=== PATIENT | male | born 1960 | race Caucasian/White ===

== ENCOUNTER 2025-03-31 19:07 | Inpatient (IN) | payer OTHER, SELFPAY ==
[2025-03-31] VITALS (7 sets, daily range): BP systolic 120–142; BP diastolic 45–68; PULSE 97–104; RESP 12–20; TEMP 36.8–38.8; O2SAT 95–99; BMI 25.5
--- NOTE | ~2025-03-31 | CT_ITS ---
CLINICAL HISTORY: crohns flare, pain, diarrhea CT abdomen and pelvis with contrast Comparison: None provided Findings: Lung bases clear. No acute bony abnormalities. Liver and spleen within normal limits. Pancreas and adrenal glands unremarkable. Cholecystectomy. No significant focal renal abnormalities. No renal stones or hydronephrosis. Abdominal aorta is normal in caliber. No free fluid or adenopathy in the pelvis. No diverticulitis. Appendix not identified. Diffuse colonic wall edema with adjacent stranding. Hydronephrosis consistent with nonspecific acute colitis. No significant bowel distention is identified. Terminal ileum is normal. Impression: Nonspecific acute colitis pattern This document has been electronically signed by: Matt Andersen MD on 03/31/2025 22:59:38
--- NOTE | 2025-03-31 19:10 | ED.GENADULT ---
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 Patient states he has been having lower abdominal discomfort over the past 2 weeks. Over the past 2 days it has increased in severity. Associated numerous episodes of diarrhea. Associated generalized malaise, fatigue, subjective fevers. Denies nausea vomiting or bloody stool. Denies recent travel out of the country, use of antibiotics or recent hospitalization. Related Data Allergies Allergy/AdvReac Type Severity Reaction Status Date / Time No Known Allergies Allergy Verified 03/31/25 19:16 Review of Systems Review of Systems: Yes all other systems are reviewed and are negative Constitutional: Constitutional: Reports fatigue, Reports fever(s) and Reports malaise Cardiovascular: Cardiovascular: Denies chest pain and Denies dyspnea Respiratory: Respiratory: Denies dyspnea Gastrointestinal: Gastrointestinal: Reports abdominal pain, Denies hematochezia, Reports diarrhea, Denies nausea and Denies vomiting Endocrine: Endocrine: Reports fatigue PMFSH Past Medical History Attestation statement: The following information was validated with the patient. Social History Social History Smoked in Last 30 Days: No Use of substances other than those prescribed or required for medical reasons: No Advance Directives: No Advance Directives Information Provided: No Physical Exam ED Vital Signs: Vital Signs - 24 hr 03/31/25 19:11 03/31/25 20:31 03/31/25 21:23 Temperature 100.0 F 98.3 F Pulse Rate 104 H 101 H Respiratory Rate 20 16 20 Blood Pressure 142/63 H 131/45 L Pulse Oximetry 96 95 Oxygen Delivery Method Room Air Room Air 03/31/25 21:27 03/31/25 22:20 03/31/25 22:23 Temperature 101.9 F H 98.3 F Pulse Rate 99 99 Respiratory Rate 12 15 17 Blood Pressure 120/63 130/62 131/68 Pulse Oximetry 95 97 99 Oxygen Delivery Method Room Air Room Air 03/31/25 22:30 03/31/25 22:30 04/01/25 00:21 Temperature 100.5 F H 98.0 F Pulse Rate 97 89 Respiratory Rate 18 12 Blood Pressure 124/64 109/60 Pulse Oximetry 95 Oxygen Delivery Method Room Air BMI result Body Mass Index 25.5 Const Other: Alert, ill-appearing Orientation/consciousness: patient oriented x3 Resp Effort & Inspection: normal respiratory effort Cardio Other: Normal peripheral perfusion GI Other: Abdomen is soft, nondistended, mild to moderate tenderness across entire lower abdomen, left greater than right, with mild involuntary guarding, guaiac negative Skin Other: Warm dry no rash Neuro General: patient oriented x3, gait normal, no focal motor deficits and CN's II-XI intact bilaterally Psych Other: Cooperative Course Course Course Narrative: This is a Rapid Medical Examination (RME) performed by Neli Tapia PA-C in triage. Full HPI, ROS, assessment and treatment plan per primary provider in the Main ED. Hx: 64 yo M here w/ concerns of Crohns flare. has not followed up w/ GI in some time, has not been on Crohns meds for approx 8 yrs. reports worsening diffuse abd pain x 2 weeks, more severe 2 days. assoc nonbloody diarrhea. no N/V. Plan: labs Medications Administered Discontinued Medications Generic Name Dose Route Start Last Admin Trade Name Freq PRN Reason Stop Dose Admin Ceftriaxone Sodium 2 gm 03/31/25 21:19 03/31/25 21:22 Ceftriaxone Sodium 2 Gm Vial IVPUSH 03/31/25 21:20 2 gm ONCE ONE Administration Sodium Chloride 1,000 mls @ 999 mls/hr 03/31/25 21:15 03/31/25 22:10 Ns IV 03/31/25 22:15 Infused .Q1H1M COLT Infusion Acetaminophen 1,000 mg in 100 mls @ 400 mls/hr 03/31/25 21:32 03/31/25 22:26 Ofirmev IV 03/31/25 21:46 Infused ONCE ONE Infusion Metronidazole 500 mg in 100 mls @ 100 mls/hr 03/31/25 23:18 04/01/25 00:42 Flagyl IV 04/01/25 00:17 Infused ONCE ONE Infusion Iohexol 85 ml 03/31/25 21:59 03/31/25 22:02 Iohexol 350 Mg/Ml 100 Ml Infus..Btl IV 03/31/25 22:00 85 ml ONCE ONE Administration Morphine Sulfate 4 mg 03/31/25 21:04 03/31/25 21:23 Morphine Sulfate 4 Mg/Ml Cartridge IVPUSH 03/31/25 21:05 4 mg ONCE ONE Administration Protocol Medical Decision Making Medical Decision Making [facility] Narrative: 64-year-old male with a history of Crohn's disease, 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 Patient states he has been having lower abdominal discomfort over the past 2 weeks. Over the past 2 days it has increased in severity. Associated numerous episodes of diarrhea. Associated generalized malaise, fatigue, subjective fevers. Denies nausea vomiting or bloody stool. Denies recent travel out of the country, use of antibiotics or recent hospitalization. Problem: Crohn's disease History: Per patient I have considered the following differential diagnoses: Crohn's flare, diverticulitis, traveler's diarrhea, C diff, sepsis Plan: The patient is meeting sepsis criteria, he is febrile, he has a significant leukocytosis he is mildly tachycardic. Screening labs completed, adding on blood cultures and lactic, inflammatory markers. Giving weight based IV fluid, Tylenol and starting empiric ceftriaxone. I will be scanning his abdomen. Given the absence of bloody stool, likely not a Crohn's flare. He has no risk factors for traveler's diarrhea or C diff. This could be diverticulitis. I have independently reviewed the following tests: Labs: Leukocytosis of 24.3 with left shift, not anemic, ESR 13, no electrolyte abnormality, lactic 0.7, CRP 9.58 CT abdomen and pelvis:Findings: Lung bases clear. No acute bony abnormalities. Liver and spleen within normal limits. Pancreas and adrenal glands unremarkable. Cholecystectomy. No significant focal renal abnormalities. No renal stones or hydronephrosis. Abdominal aorta is normal in caliber. No free fluid or adenopathy in the pelvis. No diverticulitis. Appendix not identified. Diffuse colonic wall edema with adjacent stranding. Hydronephrosis consistent with nonspecific acute colitis. No significant bowel distention is identified. Terminal ileum is normal. 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 03/31/25 19:25 03/31/25 19:25 Labs: Lab Results 03/31/25 03/31/25 03/31/25 Range/Units 19:25 21:15 21:28 WBC 24.3 H (4.8-10.8) X10*3/uL RBC 5.11 (4.60-5.80) X10*6/uL Hgb 14.1 (14.0-18.0) g/dl Hct 40.8 L (42.0-52.0) % MCV 79.8 L (80.0-98.0) fL MCH 27.6 (27.0-33.0) pg MCHC 34.6 (31.0-36.0) g/dl RDW 13.0 (11.0-16.0) % Plt Count 386 (160-400) X10*3/uL MPV 8.5 L (9.4-12.4) fL Immature Gran % (Auto) 0.7 H (0.0-0.4) % Neut % (Auto) 82.9 H (45-73) % Lymph % (Auto) 5.4 L (20-40) % [place] % (Auto) 8.5 (2-11) % Eos % (Auto) 2.0 (0-4) % Baso % (Auto) 0.5 (0-2) % Lymph # (Auto) 1.3 (1.2-4.9) X10*3/uL [place] # (Auto) 2.1 H (0.1-1.2) X10*3/uL Eos # (Auto) 0.5 H (0.0-0.4) X10*3/uL Baso # (Auto) 0.1 (0.0-0.2) X10*3/uL Abs Immat Gran (auto) 0.17 H (0.00-0.03) X10*3/uL Absolute Neuts (auto) 20.1 H (2.0-8.3) x10*3/uL Absolute Nucleated RBC 0.000 (0.0-0.012) X10*3/uL Nucleated RBC % (auto) 0.0 (0.0-0.2) /100WBC Smear Tech's Comments VERIFIED ESR 13 (0-15) MM/HR Sodium 138 (135-145) mmol/L Potassium 3.9 (3.3-5.1) mmol/L Chloride 104 (96-108) mmol/L Carbon Dioxide 23 (22-29) mmol/L Anion Gap 15 (12-20) BUN 15 (9-16) mg/dL Creatinine 1.14 (0.5-1.4) mg/dL Estim Creat Clear Calc 75.9 Estimated GFR > 60 Random Glucose 152 H (60-115) mg/dL Lactic Acid 0.7 (0.5-2.0) mmol/L Calcium 9.1 (8.4-10.2) mg/dL Magnesium 1.9 (1.6-2.6) mg/dL Total Bilirubin 0.3 (0.0-1.0) mg/dL AST 18 (5-37) U/L ALT 11 (0-40) U/L Alkaline Phosphatase 99 (39-117) U/L C-Reactive Protein 9.58 H (< or = 0.50) mg/dL Total Protein 7.0 (6.5-8.0) g/dL Albumin 4.1 (3.5-5.0) g/dL Lipase 27 (8-78) U/L Stool Occult Blood NEGATIVE (NEGATIVE) Radiology Impression Discussion of test interpretation with radiology: I have reviewed the radiologist's reading. Critical Care Time Critical Care Time Critical Care Time: Yes Total Critical Care Time: 35 Attestation: I Flalon Romo PA-C have personally performed 35 minutes of critical care time not including lines and procedures; sepsis, need for IV antibiotic therapy, Discharge Plan Discharge Clinical Impression: Sepsis, Colitis Patient Disposition: Admitted As Inpatient Print Language: Solomon Islander
[2025-03-31 19:30] LABS: Hematocrit 40.8 % (42.0-52.0); Hemoglobin 14.1 g/dl (14.0-18.0); Imm Gran Abs Auto 0.17 X10*3/uL (0.00-0.03); Imm Gran Pct Auto 0.7 % (0.0-0.4); Lymphocytes Absolute Auto 1.3 X10*3/uL (1.2-4.9); Mean Corpuscular HGB Conc 34.6 g/dl (31.0-36.0); Mean Corpuscular Hemoglobin 27.6 pg (27.0-33.0); Mean Corpuscular Volume 79.8 fL (80.0-98.0); NRBC Abs Auto 0.000 X10*3/uL (0.0-0.012); NRBC Pct Auto 0.0 /100WBC (0.0-0.2); Platelet Count 386 X10*3/uL (160-400); Red Blood Count 5.11 X10*6/uL (4.60-5.80); SCAN SMEAR FLAG 1; White Blood Count 24.3 X10*3/uL (4.8-10.8)
[2025-03-31 19:31] LABS: MANUAL DIFF FLAG SCAN
--- NOTE | 2025-03-31 19:41 | PC.NURSE ---
pt a&ox4, respirations even and unlabored. pt reports onset of increased abdominal pain, nausea but no vomiting and multiple loose stools. pt denies any blood in bowel movements. reports hx of chrones but reports he has no had a flare up recently. pt nsr on tele 75-78 bpm. 18g placed in left ac
[2025-03-31 19:45] LABS: Alanine Aminotransferase 11 U/L (0-40); Albumin Level 4.1 g/dL (3.5-5.0); Alkaline Phosphatase 99 U/L (39-117); Anion Gap 15 (12-20); Aspartate Amino Transferase 18 U/L (5-37); Blood Urea Nitrogen 15 mg/dL (9-16); Calcium 9.1 mg/dL (8.4-10.2); Carbon Dioxide 23 mmol/L (22-29); Chloride 104 mmol/L (96-108); Creatinine Clr Calc Pharmacy 75.9; Estimated Glomerular Filt Rate > 60; Lipase 27 U/L (8-78); Magnesium 1.9 mg/dL (1.6-2.6); Potassium 3.9 mmol/L (3.3-5.1); Sodium 138 mmol/L (135-145); Total Protein 7.0 g/dL (6.5-8.0)
--- OUTSIDE RECORDS SUMMARY | 2025-03-31 20:30 | XMS_ITS | Clinical Summary ---
Author Organization [facility] Address [address] [place] [phone] Phone Care Team Providers Care Simulation Educator Name Role Phone Silver Norman MD Primary Care Provider [phone] Allergies No known active allergies Medications hyoscyamine (LEVBID) 0.375 mg 12 hr tablet Take 0.375 mg by mouth every 12 (twelve) hours as needed for cramping (specific location in comments). Active FREESTYLE LITE Strp stripsIndications :Type 2 diabetes mellitus with peripheral neuropathy USE TO TEST GLUCOSE 1X DAILY 100 strip 3 4 Active atorvastatin (LIPITOR) 20 MG tablet Take 20 mg by mouth daily. 5 Active empagliflozin (JARDIANCE) 25 mg tabletIndications :Type 2 diabetes mellitus with peripheral neuropathy Take 1 tablet (25 mg total) by mouth daily. 5 Active blood-glucose sensor (DEXCOM G7 SENSOR) DeviIndications:T ype 2 diabetes mellitus with peripheral neuropathy Change every 10 days 9 each 3 5 Active semaglutide (OZEMPIC) 0.25 mg or 0.5 mg (2 mg/3 mL) subcutaneous injection penIndications:Ty pe 2 diabetes mellitus with peripheral neuropathy Inject 0.5 mg under the skin every 7 days. 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 Rx sent. Hypertension 01/06/2024 Assessment & Plan (11/30/2024 11:02 AM EDT): BP a little high today. Tends to go up w/ activity. Hasn't been taking metoprolol (no side effects, just not good @ taking meds). Advised to restart. Crohn disease 01/06/2024 Type 2 diabetes mellitus with peripheral neuropa thy 01/06/2024 Assessment & Plan (11/30/2024 11:04 AM EDT): Control has improved significantly. No frequent or severe hypoglycemia. Has some visual symptoms w/ low-tre readings. Discussed optimizing medications with favorable impacts on weight in favor of other meds (insulin) that tend to cause weight gain. Will shift ozempic to 0.5 mg weekly & restart jardiance. Will lower insulin to avoid lows. Advised to shift insulin to higher up in thigh. Will do labs. To call if hasn't heard from us within 1-2 weeks. Continue to work on eating healthy & keeping active. To call or send in BG with problems with glycemic control. To get into see new ophtho. Discussed rx neuropathy. Does not wish to pursue rx at present. Assessment & Plan (05/04/2024 4:47 PM EDT): Control has improved significantly. No frequent or severe hypoglycemia. Has some visual symptoms w/ low-tre readings. That has improved w/ titrating down insulin dosing. Will do labs. To call if hasn't heard from us within 1-2 weeks. Continue to work on eating healthy & keeping active. To call or send in BG with problems with glycemic control. Up to date with opho. Umalb/creat ratio up to date, normal. Discussed rx neuropathy. He has been inconsistent taking lyrica. BP under reasonable control. Assessment & Plan (03/19/2024 3:25 PM EDT): Control is improving based upon the patient's dexcom G7 download. No frequent or severe hypoglycemia. His glucose levels have been doing well with the ozempic, will try increasing the dosing to see if can further improve his control. Continue to work on eating healthy and being active. To call or message with any issues managing his glucose levels. Up to date with opho Assessment & Plan (01/06/2024 1:05 PM EDT): Control has been poor/has deteriorated. Having worsening neuropathy symptoms, weight loss & weakness, likely related to poor control. No frequent or severe hypoglycemia. Will do labs. To call if hasn't heard from us within 1-2 weeks. Discussed options to improve control. Advised he begin basal insulin. To start @ 10 units nightly. May titrate up 2 units every 3-4 days if sugars remain high & no hypoglycemia. Will shift from trulicity to ozempic due to supply chain issues, to start 0.25 mg & increase to 0.50 mg as tolerated after 1 month. Will send rx for sandra 3 to better evaluate control/guide rx adjustment. Continue to work on eating healthy & keeping active. To call or send in BG with problems with glycemic control. Up to date with opho. Mild tinea pedis on exam, to rx with OTC anti-fungal. BP under reasonable control. Weight loss 01/06/2024 care home current use of oral hypoglycemic drug Long-term current use of inj ectable noninsulin antidiabetic medication care home current use of insulin Encounters Date Type Department Care Team Description 02/25/2025 Refill [facility] [address] [place] [address] Dina Ellington MA Medication Refill (BD pen needles) 12/31/2024 Orders Only [facility] [place] [address] [place] [phone] Rossana Stringer MD Type 2 diabetes mellitus with peripheral neuropathy (Primary Dx); care home current use of insulin 12/31/2024 Telephone [facility] [address] [place] [address] Cecilia Baldwin MA from Last 3 Months Family History Medical History Relation Comments Kidney failure Father Diabetes Mother Relation Status Comments Father Mother Social History Tobacco Use Types Packs/Day Years Used Date Smoking Tobacco: Never Smokeless Tobacco: Never Alcohol Use Standard Drinks/Week Comments Never 0 (1 standard drink = 0.6 oz pur e alcohol) Education Answer Date Recorded Are you interested in more education? Not on hernandez e 05/15/2023 Are you concerned about learning? Not on file 05/15/2023 No 05/15/2023 No 05/15/2023 Digital Access Answer Date Recorded No 05/15/2023 No 05/15/2023 Reliable internet access at home? Not on file 05/15/2023 Device with a working camera? Not on file Intimate Partner Violence Answer Date R ecorded Are you denied basic needs s uch as food, clothing, or medical care? No 05/15/2023 In the past 12 months have y ou been in a relationship with a person who hurts, threatens, or tries to control you? No 05/15/2023 Are you denied basic needs s uch as food, clothing, or medical care? No 05/15/2023 In the past 12 months have y ou been in a relationship with a person who hurts, threatens, or tries to control you? No 05/15/2023 Sex and Gender Information Value Date Recorded Sex Assigned at Not on file Legal Sex Male 10:40 AM EDT Gender Identity Not on file Sexual Orientation Not on file Last Filed Vital Signs Vital Sign Reading Time Taken Comments Blood Pressure 142/82 11/30/2024 10:29 AM EDT Pulse 91 11/30/2024 10:29 AM EDT Temperature 36.4 C (97.5 F) 05/15/2023 1:10 PM EDT Respiratory Rate 18 05/15/2023 1:10 PM EDT Oxygen Saturation 97% 11/30/2024 10:29 AM EDT Inhaled Oxygen Concentration - - Weight 94.9 kg (209 lb 3.2 oz) 11/30/2024 10:29 AM EDT Height 185.4 cm (6' 1 ) 11/30/2024 10:29 AM EDT Body Mass Index 27.6 11/30/2024 10:29 AM EDT Plan of Treatment Upcoming Encounters Date Type Department Care Team (Late st Contact Info) Description 08/30/2025 11:00 AM EST Office Visit [facility] [address] [place] [id number] Rossana Stringer MD [address] [place] [phone] [email or web address] Health Maintenance Due Date Last Done Comments Adult Td,Tdap Booster 1962 DEPRESSION SCREENING 1974 HEPATITIS C SCREENING 1980 HIV ONE-TIME SCREENING (18-6 5 YEARS) 1980 PNEUMOCOCCAL VACCINES (50+ years) (1 of 2 - PCV) 1981 COLOGUARD 2007 COLONOSCOPY 2007 COLORECTAL CANCER SCREENING 2007 FIT TEST 2007 FOBT 2007 SIGMOIDOSCOPY 2007 VIRTUAL COLONOSCOPY 2007 ZOSTER VACCINES (1 of 2) 2012 RSV VACCINE (1 - Risk 60-74 years 1-dose series) 2022 DIABETIC EYE EXAM 01/06/2024 COVID-19 VACCINE ( - 2023-2 5 season) 2024 BLOOD PRESSURE 06/02/2025 11/30/2024 HEMOGLOBIN A1C 06/02/2025 11/30/2024, 08/24/2024, 01/06/2024 URINE MICROALBUMIN/CREATININ E RATIO 11/30/2025 11/30/2024, 01/06/2024 SMOKING STATUS SCREENING (On ce After 26 Yrs) Completed 05/04/2024 HEPATITIS A VACCINES Aged Out No long er eligible based on patient's age to complete this topic HIB VACCINES Aged Out No longer eligi ble based on patient's age to complete this topic MENINGOCOCCAL VACCINES (ACWY) Aged Out No longer eligible based on patient's age to complete this topic MENINGOCOCCAL VACCINES (B) Aged Out N o longer eligible based on patient's age to complete this topic Medical Devices Not on file Procedures Procedure Name Priority Date/Time Associated Diagnosis Comments MICROALBUMIN/CREATIN INE RATIO, RANDOM URINE Routine 11/30/2024 11:23 AM EDT Type 2 diabetes mellitus with peripheral neuropathy HEMOGLOBIN A1C Routine 11/30/2024 11:15 AM EDT Type 2 diabetes mellitus with peripheral neuropathy from Last 3 Months or Most Recently Relevant to Health Maintenance Results * Microalbumin/creatinine ratio, random urine (11/30/2024 11:23 AM EDT) URINE MICROALBUMIN <1.2 0 - 2.3 mg/dL [facility] URINE CREATININE 47 mg/dL [facility] MICROALB/CRE RATIO NOT CALCULATED 0 - 20 mg/g Cre [facility] Comment:due to Microalbumin <1.2 Urine (Urine) 11/30/2024 11: 23 AM EDT 11/30/2024 11:25 AM EDT us Rossana Stringer MD URINE ORDERABLES Final Result Performing Organization Address [facility]/ZIP Co de Phone Number [address] [address] * (ABNORMAL) Hemoglobin A1c (11/30/2024 11:15 AM EDT) HEMOGLOBIN A1C 6.4(H) 4.3 - 5.8 % [facility] Blood 11/30/2024 11:1 5 AM EDT 11/30/2024 11:21 AM EDT us Rossana Stringer MD LAB BLOOD ORDERABLES F inal Result Performing Organization Address City/[facility]/ZIP Co de Phone Number [address] [address] from Last 3 Months or Most Recently Relevant to Health Maintenance [facility] [employer] BENEF[employer]ATORS [facility] [employer] BENEFITS [employer]MIN[employer]ATORS [facility] [employer] [facility] ADMINISTRATORS [facility] BENEFITS ADMINISTRATORS Care Teams Simulation Educator Relationship Specialty Start Date End Date Silver Norman MD [address] [place] [address] [address] [place] [address] PCP - General Internal Medicine 05/15/23 Additional Source Comments The information contained in this document represents components of the legal health record. It is not the complete legal health record.[facility]
--- NOTE | 2025-03-31 20:36 | PC.NURSE ---
pt noted to have elevated WBC at this time, aware
[2025-03-31 21:35] LABS: OBS Int Ctl Valid YES; OBS1 NEGATIVE (NEGATIVE)
--- NOTE | 2025-03-31 21:47 | PC.NURSE ---
sepsis alert called [id number] by KRYSTAL Olivares. Blood cultures obtained and sent. this rn at bedside with KRYSTAL obtained rectal exam, pt tolerated well. pt noted to have rectal temp at this time. 1L fluid bolus administering at this time. and pt taken to ct
[2025-03-31] MEDS: iohexoL 350 MG/ML 100 ML INFUS..BTL 85 ML IV (22:02)
[2025-03-31] MEDS: metroNIDAZOLE/NS 500 MG/100 ML PIGGYBACK 100 MG IV (23:32)
[2025-04-01] VITALS (8 sets, daily range): BP systolic 104–143; BP diastolic 55–68; PULSE 80–109; RESP 12–18; TEMP 36.1–38.1; O2SAT 94–97; BMI 25.5
--- NOTE | 2025-04-01 | ECG_ITS ---
Test Reason : ELECTROLYTE IMBALANCE Blood Pressure : */* mmHG Vent. Rate : 94 BPM Atrial Rate : 94 BPM P-R Int : 136 ms QRS Dur : 134 ms QT Int : 390 ms P-R-T Axes : 68 75 -12 degrees QTcB Int : 487 ms Normal sinus rhythm Right bundle branch block T wave abnormality, consider inferolateral ischemia Abnormal ECG No previous ECGs available Referred By: Jerrica Dang Electronically Signed By: GUY BURGOS MD
--- NOTE | 2025-04-01 01:06 | PM.IMHP ---
History of Present Illness Date of Service: 04/01/25 Attending physician on admission: Esteban Olivares Chief Complaint: abdominal pain Pt is a 64 yo male with PMH crohn's off tx (imuran) for 5-10 years, hypertension, hyperlipidemia, bilateral rotator cuff tears, osteoarthritis, nephrolithiasis, B inguinal hernia repair, calcifications bilateral lungs, insulin-dependent diabetes type 2, neuropathy BLEs, presents to the ED with 2 days of worsening abdominal pain and fever. Patient states he developed a cold with cold-like symptoms approximately 2 months ago and since then has been having persistent abdominal pain with diarrhea. Pt was negative for COVID and FLU back then. Patient states the diarrhea has persisted and was surprised to find that his weight was 186 today when 2 months prior he had been over 200 lb. Pt denies any loss of appetite but feels he may have been eating less overall during times of abdominal pain. Patient does have a history of Crohn's and stopped Imuran approximately 10 years prior as this prescription was not renewed because of lack of follow-up. Patient has not seen a GI provider in over 10 years. Patient does follow with his PCP for his diabetes management but has declined to take medications for high blood pressure and hyperlipidemia. In regards to the calcification of the lungs, patient was supposed to have a follow-up CT scan and the last was 10 years prior. Patient plans to follow up as an outpatient regarding this. No hypoxia on admission. Patient denies history of smoking, alcohol use, marijuana use or illicit drug use. Patient has persistent nausea, abdominal tenderness, diarrhea but states fever has resolved and patient is feeling much better after receiving fluids and antibiotics. Patient had noted max temp of 101.3 degrees, leukocytosis, normal lactic acid and abdominal CT identified acute nonspecific colitis. Blood cultures currently pending. UA also pending. Patient is started on ceftriaxone and Flagyl in the ED. Pt does wear a continuous glucose monitor and denies recent high blood glucose levels and denies hx of HHS or DKA. Review of Systems Review of Systems: Patient reports persistent nausea, diarrhea, abdominal tenderness but denies any vomiting. Patient is not having any chest pain or shortness of breath at rest or with exertion. Patient denies any headache or visual changes. Yes all other systems are reviewed and are negative [facility] Medical History Diabetes 1.5, managed as type 2 Osteoarthritis Rotator cuff tear Hyperlipidemia Hypertension Crohn disease Cognitive capacity: Alert and orientated x3 Functional capacity: independent ambulation Pertinent family history: Mother from Lewy body dementia late 70s also had diabetes Father late 60s from chronic kidney disease and likely had Crohn's disease Surgical History H/O hernia repair Social History Smoked in Last 30 Days: No Use of substances other than those prescribed or required for medical reasons: No Advance Directives: No Advance Directives Information Provided: No Ebola Risk: Travel/Contact With Anyone From Affected Area/s: No Has Patient Experienced Ebola Symptoms: No Meds Allergies Allergy/AdvReac Type Severity Reaction Status Date / Time No Known Allergies Allergy Verified 03/31/25 19:16 Physical Exam Vital Signs and Narrative: Vital Signs: Last Vital Signs Temp 98.0 F 04/01/25 00:21 Pulse 89 04/01/25 00:21 Resp 12 04/01/25 00:21 BP 109/60 04/01/25 00:21 Pulse Ox 95 04/01/25 00:21 O2 Del Method Room Air 04/01/25 00:21 BMI result Body Mass Index 25.5 Alert and orientated X3, able to give good history. Neuro: CN II-X11 intact, no deficits, visual acuity intact EYES: PERRLA, EOM intact, sclerae nonicteric, conjunctiva pink ENT: hearing intact, no issues with swallowing, uvula midline, lips moist, nares patent no epistaxis Cardiac: S1 S2 RRR, no murmur, no JVD, no edema in Lower ext Pulmonary: lungs clear to auscultation B Abdominal: BS active in all 4 quadrants, no guarding, mild tenderness midepigastric area, no rebounding MSK: strength 5/5 upper and lower extremities : no CVA tenderness no bladder distension Extremities: no edema in lower extremities, PT and DP pulses palpable +2 Psych: mood stable, judgement and insight good Skin: intact Results Labs 03/31/25 19:25 03/31/25 19:25 Labs: Laboratory Results - last 24 hr 03/31/25 03/31/2503/31/25 19:25 21:15 21:28 MCV 79.8 L MCH 27.6 MCHC 34.6 RDW 13.0 Plt Count 386 MPV 8.5 L Immature Gran % (Auto) 0.7 H Neut % (Auto) 82.9 H Lymph % (Auto) 5.4 L Bradley % (Auto) 8.5 Eos % (Auto) 2.0 Baso % (Auto) 0.5 Lymph # (Auto) 1.3 Bradley # (Auto) 2.1 H Eos # (Auto) 0.5 H Baso # (Auto) 0.1 Abs Immat Gran (auto) 0.17 H Absolute Neuts (auto) 20.1 H Absolute Nucleated RBC 0.000 Nucleated RBC % (auto) 0.0 Smear Tech's Comments VERIFIED ESR 13 Anion Gap 15 Estim Creat Clear Calc 75.9 Estimated GFR > 60 Random Glucose 152 H Lactic Acid 0.7 Calcium 9.1 Magnesium 1.9 Total Bilirubin 0.3 AST 18 ALT 11 Alkaline Phosphatase 99 C-Reactive Protein 9.58 H Total Protein 7.0 Albumin 4.1 Lipase 27 Stool Occult Blood NEGATIVE ECG Attestation: I personally reviewed and interpreted this ECG as follows: (NSR, RBBB, abnormal T wave inferolateral ) Prior ECG tracings: available for review Imaging Radiologist's Impressions: CT ABD and Pelvis Findings: Lung bases clear. No acute bony abnormalities. Liver and spleen within normal limits. Pancreas and adrenal glands unremarkable. Cholecystectomy. No significant focal renal abnormalities. No renal stones or hydronephrosis. Abdominal aorta is normal in caliber. No free fluid or adenopathy in the pelvis. No diverticulitis. Appendix not identified. Diffuse colonic wall edema with adjacent stranding. Hydronephrosis consistent with nonspecific acute colitis. No significant bowel distention is identified. Terminal ileum is normal. Impression: Nonspecific acute colitis pattern Assessment and Plan (1) Colitis: Status: Acute (2) Sepsis: Qualifiers: Sepsis acute organ dysfunction status: unspecified Sepsis type: sepsis due to unspecified organism Qualified Code(s): A41.9 - Sepsis, unspecified organism Status: Acute Plan Pt is a 64 yo male with PMH crohn's off tx (imuran) for 5-10 years, hypertension, hyperlipidemia, bilateral rotator cuff tears, osteoarthritis, nephrolithiasis, B inguinal hernia repair, calcifications bilateral lungs, insulin-dependent diabetes type 2, neuropathy BLEs, presents to the ED with 2 days of worsening abdominal pain and fever. Patient states he developed a cold with cold-like symptoms approximately 2 months ago and since then has been having persistent abdominal pain with diarrhea. Patient states the diarrhea has persisted and was surprised to find that his weight was 186 today when 2 months prior he had been over 200 lb. Patient being admitted with acute colitis and known history of Crohn's disease. Pt does meet criteria for sepsis this admission. Sepsis/ Leukocytosis with left shift Patient now ordered to have cefepime and Flagyl IV hydration continues Blood cultures pending Stool panel pending UA pending Lactic Acid WNL Repeat labs in the a.m. Colitis On antibiotics as above to include cefepime and Flagyl GI consultation ordered Bowel rest, patient is willing to start clears as he is complaining of hunger - we will stop diet and make patient NPO if nausea or vomiting occurs Stool panel ordered Abnormal ECG RBBB, no comparison ECG in chart Abnormal T wave findings inferolateral Asymptomatic Telemetry added Troponin pending Pt has deferred taking antihypertensives and statin for some time - check Lipid panel Consider Cardiology consult if indicated with labs, overnight monitoring HX of Crohn's disease GI consulted, patient has not had any treatment in the last 10 years - was on imuran IDDM SSI Clear diet for now OA chronic wih B Rotator cuff tears chronic Tylenol prn Follow up as an outpatient DVT prophylaxis: Lovenox Med rec pending Full Code status Quality Stroke Does the patient have a stroke diagnosis?: No Reason for No Anti-thrombotic by Day Two: N/A - Med Ordered VTE Prior VTE?: No VTE Risk Level:: Medical - moderate - high VTE Device Contraindication: N/A - Device Ordered VTE Drug Contraindication: N/A - Med Ordered
[2025-04-01 03:49] LABS: Appearance Urine Clear; Glucose Urine UA Negative (Negative); PH 6.0 (5.0-9.0); Specific Gravity - Urine >= 1.030 (1.005-1.025); UMIC TRIGGER UACC YES
--- NOTE | 2025-04-01 04:02 | PC.NURSE ---
pt has order for med tele, nursing supervisor public message service checked with MD/PA and ok to be admitted to med surg on a tele monitor
[2025-04-01] MEDS: cefEPime HCl/D5W 2 GM/50 ML PIGGYBACK IV ×2 (04:30→12:00)
[2025-04-01 07:03] LABS: Hematocrit 38.5 % (42.0-52.0); Hemoglobin 13.3 g/dl (14.0-18.0); Imm Gran Abs Auto 0.26 X10*3/uL (0.00-0.03); Imm Gran Pct Auto 1.1 % (0.0-0.4); Lymphocytes Absolute Auto 0.8 X10*3/uL (1.2-4.9); MANUAL DIFF FLAG SCAN; Mean Corpuscular HGB Conc 34.5 g/dl (31.0-36.0); Mean Corpuscular Hemoglobin 27.8 pg (27.0-33.0); Mean Corpuscular Volume 80.5 fL (80.0-98.0); NRBC Abs Auto 0.000 X10*3/uL (0.0-0.012); NRBC Pct Auto 0.0 /100WBC (0.0-0.2); Platelet Count 348 X10*3/uL (160-400); Red Blood Count 4.78 X10*6/uL (4.60-5.80); SCAN SMEAR FLAG 1; White Blood Count 24.0 X10*3/uL (4.8-10.8)
[2025-04-01 07:39] LABS: Troponin-I High Sensitivity 3.4 ng/L (<3.5-35.0)
--- NOTE | 2025-04-01 07:41 | HO.PM.IMPN ---
Subjective Subjective Date of Service: 04/01/25 Interval History: Patient was seen by GI, who likely believe that this is a flare-up of his underlying Crohn's, GI and C diff panel was negative, hence discontinued broad-spectrum antibiotics to prevent C diff and other opportunistic infections with the recommendation of GI. 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 intake and gradually escalate to solids and if he is able to tolerate, DC IV fluids Review of Systems Review of Systems: Yes all other systems are reviewed and are negative Physical Exam Exam: Exam: General: AOx3, no acute distress Resp: CTA bilaterally CVS: S1, S2, RRR GI: +BS, NT, no distention Skin: Warm, dry Neuro: Cranial nerves II-XII grossly intact bilaterally. Motor grossly intact bilaterally Extremities: No edema Psych: Appropriate affect Vital Signs: Vital Signs: Last Vital Signs Temp 100.1 F 04/01/25 04:00 Pulse 104 H 04/01/25 04:00 Resp 17 04/01/25 04:00 BP 143/68 H 04/01/25 04:00 Pulse Ox 97 04/01/25 04:00 O2 Del Method Room Air 04/01/25 04:00 BMI result Body Mass Index 25.5 Objective Data Active Medications Acetaminophen (Acetaminophen 325 Mg Tablet) 650 mg PO Q6H PRN PRN Reason: Pain, Mild 1-3,fever,headache Last Admin: 04/01/25 04:30 Dose: 650 mg Documented By: LEONILA Albuterol/Ipratropium (Albuterol/Iprat 2.5/0.5mg 3 Ml Ampul.Neb) 3 ml INHALE Q4H PRN PRN Reason: Shortness of Breath/Wheezing Calcium Carbonate (Calcium Carbonate 750 Mg Tab.Chew) 750 mg PO Q4H PRN PRN Reason: Heartburn Dextrose (Dextrose 50 % 25 Gm/50 Ml Syringe) 25 gm IVPUSH Q15M PRN; Protocol PRN Reason: per Hypoglycemia Standing Ord. Enoxaparin Sodium (Enoxaparin Sodium 40 Mg/0.4 Ml Syringe) 40 mg SUBCUT Q24H [facility] Last Admin: 04/01/25 01:52 Dose: 40 mg Documented By: PAULINA Glucose (Glucose Gel 15 Gm Gel..Gram.) 15 gm PO Q15M PRN; Protocol PRN Reason: per Hypoglycemia Standing Ord. Cefepime HCl (Maxipime) 2 gm in 50 mls @ 100 mls/hr IV Q8H [facility] Last Infusion: 04/01/25 05:05 Dose: Infused Documented By: LEONILA Sodium Chloride (Ns) 1,000 mls @ 125 mls/hr IVCONT .Q8H [facility] Last Admin: 04/01/25 01:53 Dose: 125 mls/hr Documented By: PAULINA Metronidazole (Flagyl) 500 mg in 100 mls @ 100 mls/hr IV Q8H [facility] Insulin Human Lispro (Insulin Lispro 100 Unit/Ml 3 Ml Vial) 0 unit SUBCUT QIDACHS [facility]; Protocol Magnesium Hydroxide (Milk Of Magnesia 30 Ml Oral.Susp) 30 ml PO DAILY PRN PRN Reason: Constipation Melatonin (Melatonin 3 Mg Tablet) 6 mg PO BEDTIME PRN PRN Reason: Insomnia Ondansetron HCl (Ondansetron Hcl 4 Mg/2 Ml Vial) 4 mg IVPUSH Q8H PRN PRN Reason: Nausea and Vomiting Sodium Chloride (0.9 % Sodium Chloride Flush 3 Ml Syringe) 3 ml IVFLUSH QSHIFT [facility] Labs 04/01/25 06:04 04/01/25 06:04 Labs: Laboratory Results - last 24 hr 03/31/25 03/31/25 03/31/25 19:25 21:15 21:28 MCV 79.8 L MCH 27.6 MCHC 34.6 RDW 13.0 Plt Count 386 MPV 8.5 L Immature Gran % (Auto) 0.7 H Neut % (Auto) 82.9 H Lymph % (Auto) 5.4 L Henry % (Auto) 8.5 Eos % (Auto) 2.0 Baso % (Auto) 0.5 Lymph # (Auto) 1.3 Henry # (Auto) 2.1 H Eos # (Auto) 0.5 H Baso # (Auto) 0.1 Abs Immat Gran (auto) 0.17 H Absolute Neuts (auto) 20.1 H Absolute Nucleated RBC 0.000 Nucleated RBC % (auto) 0.0 Smear Tech's Comments VERIFIED ESR 13 Anion Gap 15 Estim Creat Clear Calc 75.9 Estimated GFR > 60 Random Glucose 152 H Lactic Acid 0.7 Calcium 9.1 Magnesium 1.9 Total Bilirubin 0.3 AST 18 ALT 11 Alkaline Phosphatase 99 C-Reactive Protein 9.58 H Total Protein 7.0 Albumin 4.1 Lipase 27 Urine Color Urine Appearance Urine pH Ur Specific Chester Urine Protein Urine Glucose (UA) Urine Ketones Urine Blood Urine Nitrite Ur Leukocyte Esterase Urine RBC Urine WBC Ur Squamous Epith Cells Urine Bacteria Hyaline Casts Stool Occult Blood NEGATIVE 04/01/25 04/01/25 03:42 06:04 MCV 80.5 MCH 27.8 MCHC 34.5 RDW 13.2 Plt Count 348 MPV 9.0 L Immature Gran % (Auto) 1.1 H Neut % (Auto) 84.9 H Lymph % (Auto) 3.4 L Henry % (Auto) 8.2 Eos % (Auto) 1.8 Baso % (Auto) 0.6 Lymph # (Auto) 0.8 L Henry # (Auto) 2.0 H Eos # (Auto) 0.4 Baso # (Auto) 0.1 Abs Immat Gran (auto) 0.26 H Absolute Neuts (auto) 20.4 H Absolute Nucleated RBC 0.000 Nucleated RBC % (auto) 0.0 Smear Tech's Comments VERIFIED ESR Anion Gap Estim Creat Clear Calc Estimated GFR Random Glucose Lactic Acid Calcium Magnesium Total Bilirubin AST ALT Alkaline Phosphatase C-Reactive Protein Total Protein Albumin Lipase Urine Color Yellow Urine Appearance Clear Urine pH 6.0 Ur Specific Chester >= 1.030 H Urine Protein 30 (1+) H Urine Glucose (UA) Negative Urine Ketones 15 Urine Blood Negative Urine Nitrite Negative Ur Leukocyte Esterase Negative Urine RBC 0-2 Urine WBC 0-5 Ur Squamous Epith Cells 0-2 Urine Bacteria None Seen Hyaline Casts 0-2 Stool Occult Blood Assessment and Plan (1) Crohn disease: Status: Acute Plan 64 yo male with PMH crohn's off tx (imuran) for 5-10 years, hypertension, hyperlipidemia, bilateral rotator cuff tears, osteoarthritis, nephrolithiasis, B inguinal hernia repair, calcifications bilateral lungs, insulin-dependent diabetes type 2, neuropathy BLEs, presents to the ED with 2 days of worsening abdominal pain and fever was noted to have Crohn's flare and is being worked up by GI for re-initiation of biologics. Crohn's flare causing colitis GI and C diff panel was negative hence decided to discontinue broad-spectrum antibiotics Patient encouraged to eat probiotic yogurt Awaiting calprotectin result - if negative 100 mg IV Hydrocortisone and an oral mesalamine. Continue fluids, if continuing to have good p.o. intake, can DC fluids overall Type 2 DM Currently euglycemic given clear liquid intake, we will start him on ss insulin htn HDS, hold home meds given chrons flare OA Pain control with tylenol, will avoid opioids DVT px with Lovenox 40 sc od Quality Stroke Does the patient have a stroke diagnosis?: No Reason for No Anti-thrombotic by Day Two: N/A - Med Ordered VTE Prior VTE?: No VTE Risk Level:: Medical - moderate - high VTE Device Contraindication: N/A - Device Ordered VTE Drug Contraindication: N/A - Med Ordered
[2025-04-01 07:53] LABS: Alanine Aminotransferase 7 U/L (0-40); Albumin Level 3.3 g/dL (3.5-5.0); Alkaline Phosphatase 93 U/L (39-117); Anion Gap 13 (12-20); Aspartate Amino Transferase 20 U/L (5-37); Blood Urea Nitrogen 12 mg/dL (9-16); Carbon Dioxide 20 mmol/L (22-29); Chloride 109 mmol/L (96-108); Cholesterol 106 mg/dL (<200); Creatinine Clr Calc Pharmacy 90.1; Estimated Glomerular Filt Rate > 60; HDL Cholesterol 28 mg/dL (>40); Potassium 3.2 mmol/L (3.3-5.1); Sodium 139 mmol/L (135-145); Total Protein 5.8 g/dL (6.5-8.0); Triglycerides 77 mg/dL (<150)
[2025-04-01 08:01] LABS: Calcium 8.3 mg/dL (8.4-10.2)
[2025-04-01 08:07] LABS: Glucose, Whole Blood 96 mg/dL (60-115)
[2025-04-01] MEDS: metroNIDAZOLE/NS 500 MG/100 ML PIGGYBACK 100 MG IV (08:47)
[2025-04-01] MEDS: 0.9 % Sodium Chloride Flush 3 ML SYRINGE IVFLUSH ×2 (08:47→15:22)
--- NOTE | 2025-04-01 09:49 | PC.NURSE ---
0945 spoke with pt at bedside in detail about fall risk interventions, pt scores as high fall risk due to report of recent fall. Pt is respectfully refusing bed alarm at this time but denies dizziness/weakness states falls are not usual for him and was an isolated event. All other fall risk measurers in place.
--- NOTE | 2025-04-01 10:03 | PHA.MEDREC ---
Pharmacy Consult ? Medication Reconciliation Pharmacy has completed the medication reconciliation. PT WAS ABLE TO CONFIRM MEDICATIONS WHEN I LISTED THEM FROM CLAIMS HISTORY. HE STATES HE TAKES OZEMPIC ON TUESDAY OR TUESDAY WHEN HE REMEMBERS BUT DIDN'T TAKE IT THIS WEEK. HE THINKS HE LAST TOOK IT ON THE March. ALSO STATES HE IS NOT GREAT AT REMEMBERING TO TAKE HIS LANTUS IN THE MORNING BUT NORMALLY TAKES IT SOMETIME BEFORE LUNCH . HE WAS ABLE TO CONFIRM THAT HE TAKES 34 UNITS OF LANTUS SO THAT WAS THE DOSE ENTERED AND CONFIRMED.
[2025-04-01 11:46] LABS: Glucose, Whole Blood 185 mg/dL (60-115)
[2025-04-01 12:08] LABS: E. coli EAEC Not Detected (Not Detect.); E. coli EPEC Not Detected (Not Detect.); E. coli ETEC Not Detected (Not Detect.); E. coli STEC Not Detected (Not Detect.); Shigella sp./EIEC Not Detected (Not Detect.)
--- NOTE | 2025-04-01 13:54 | PM.EVENT ---
Event Note Date of Service: 04/01/25 Event Note: GI Consult-Full note dictated Imp/Recs: Active colitis most likely related to his underlying history of Crohn's. However, prior to starting steroids I want to R/O infectious colitis given the elevated WBC count. Stools are pending for Cdiff and GI panel, and ordered for fecal calprotectin. If the stools are negative for infection I will start 100 mg IV Hydrocortisone and an oral mesalamine. Continue supportive care in the meantime. If stools are negative for infection the antibiotics can probably be stopped as well. D/W patient and his in detail. They are comfortable with the plan. Thanks Time Spent With Patient Time: Total time managing care of this patient today ____ minutes.
[2025-04-01 14:09] LABS: CDiff Gene PCR NEGATIVE (Negative)
[2025-04-01 16:20] LABS: Glucose, Whole Blood 196 mg/dL (60-115)
[2025-04-01] MEDS: Hydrocortisone Sod Succ/PF 100 MG VIAL IVPUSH ×2 (16:31→21:40)
--- NOTE | 2025-04-01 17:03 | PC.NURSE ---
Pt reporting generalized pain, Tylenol given PRN. Temp of 100.5 reported to this RN after Tylenol administration, MD Rich made aware, temp recheck 99.8 after one hour.
[2025-04-01 21:02] LABS: Glucose, Whole Blood 177 mg/dL (60-115)
--- NOTE | 2025-04-02 00:20 | CONS_ITS ---
DATE OF SERVICE: 04/01/2025 REASON FOR CONSULTATION: Diarrhea, history of Crohn's disease, and abnormal CT scan of colon. HISTORY OF PRESENT ILLNESS: This has been obtained from the patient, his , Amalia, who is an ER nurse here, and the medical record. The patient is a 64-year-old male who describes the diagnosis of Crohn's disease at approximately age 42. He had been followed by Dr. Mcnair in [place] and had been on Imuran for number of years with fairly good relief. He has never been treated with biologic. He had been on prednisone in the early course of his disease, but had not needed that for many years. About 8 or 10 years ago, he stopped the Imuran as he had been doing fairly well and has continued to do well without any specific treatment. He describes his last colonoscopy being about 8 years ago. He had been told to have them about every 3 years. Over the past 2 months, he has had worsening GI symptoms with progressive diarrhea, abdominal pain and cramps, and some weight loss. More recently, he has had low-grade temperatures and finally came to the ER as he was feeling quite poorly. He denied any hematochezia or melena. He never had any nausea or vomiting. He did not notice any jaundice. He thinks he has lost about 10 to 15 pounds. He denies any ill contacts, recent antibiotic use, nor any significant amounts of NSAIDs. He does travel domestically quite a bit for his job. Since in the ER and admission to the medical floor, he has been feeling fairly well, but still having abdominal cramps and discomfort. He has been having clear liquids and loose stools. Again, there has been no sign of bleeding. MEDICATIONS: At home included atorvastatin, insulin, and Ozempic. Medications here in the hospital include cefepime IV, metronidazole IV, insulin, Lovenox, Zofran p.r.n., melatonin p.r.n. PAST MEDICAL HISTORY: He describes 2 inguinal hernia surgeries on each side, cholecystectomy, and hemorrhoid surgery. Crohn's disease as above, diabetes, hypertension, and hyperlipidemia. He denies history of PR, stroke, lung disease, nor kidney disease. 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 He is . He does not smoke nor use any significant amounts of alcohol. FAMILY HISTORY: Noncontributory. REVIEW OF SYSTEMS: CONSTITUTIONAL: He has been feeling poorly at home over the past couple of months. CARDIAC: No chest pain. PULMONARY: No cough or hemoptysis. GI: As above. URINARY: No dysuria, no hematuria. NEUROLOGIC: No headache or seizures. PHYSICAL EXAMINATION: GENERAL: The patient is a pleasant, alert, somewhat tired-appearing male, but in no distress. VITAL SIGNS: He has been afebrile today, but yesterday had a temperature as high as 101.9. Vital signs otherwise stable. SKIN: Warm and dry. HEENT: Anicteric sclerae. Moist mucous membranes. NECK: Supple without lymphadenopathy. CHEST: Clear. CARDIAC: Normal S1, S2. ABDOMEN: Soft, nondistended. Normal bowel sounds. He does have some mild diffuse tenderness without mass or rebound. EXTREMITIES: Without edema. LABORATORY DATA: His abdominal CT described diffuse colonic wall edema with some stranding of fat. The terminal ileum is described as normal. There was no sign of any intraabdominal fluid collections. White count yesterday was 24.3 and today is 24,000. Hemoglobin 13.3, MCV 80, platelets 348,000. Sodium 139, potassium 3.2, BUN 12, creatinine 0.96. Normal LFTs. Albumin 3.3. Lipase 27. Stool was negative for occult blood. GI panel and stool for C difficile is pending. IMPRESSION: Given the patient's history, this does sound consistent with a flare of his Crohn's disease over the past couple of months. His elevated white count is worrisome as he was not on any prednisone and we do need to wait for the stool specimens to be sure we are not dealing with any type of infectious colitis. His abdominal exam is fairly benign without any acute findings. At this point, I would continue supportive care. Certainly, if the stool specimen shows a specific infection, we could treat that accordingly. If the stool specimens are all negative, then I would start him on steroids given his underlying history of Crohn's disease. A stool has also been ordered for fecal calprotectin. If it appears that this is a flare of the Crohn's, I would also start him on oral mesalamine. He may very well need outpatient treatment with a biologic agent depending upon his clinical course. I shall order a hepatitis B profile and TB test in preparation for that. I will continue clear liquids for now. I would hold off on colonoscopy unless things persist without any improvement. However, I do not think he needs that acutely. We did review that he should have that done once things stabilize as he has not had it done for almost 10 years or so. This has all been discussed with the patient and his in detail. They are comfortable with the plan. Thanks for the consultation. MD CHIRAG Rucker/LETI / [phone] [email or web address]
[2025-04-02] MEDS: Hydrocortisone Sod Succ/PF 100 MG VIAL IVPUSH ×4 (02:54→20:59)
[2025-04-02 02:57] VITALS: BP 123/73; PULSE 90; RESP 16; TEMP 36.4; O2SAT 97
[2025-04-02 06:52] LABS: Hematocrit 39.0 % (42.0-52.0); Hemoglobin 13.5 g/dl (14.0-18.0); Imm Gran Abs Auto 0.56 X10*3/uL (0.00-0.03); Imm Gran Pct Auto 2.1 % (0.0-0.4); Lymphocytes Absolute Auto 0.7 X10*3/uL (1.2-4.9); MANUAL DIFF FLAG SCAN; Mean Corpuscular HGB Conc 34.6 g/dl (31.0-36.0); Mean Corpuscular Hemoglobin 27.7 pg (27.0-33.0); Mean Corpuscular Volume 80.1 fL (80.0-98.0); NRBC Abs Auto 0.000 X10*3/uL (0.0-0.012); NRBC Pct Auto 0.0 /100WBC (0.0-0.2); Platelet Count 365 X10*3/uL (160-400); Red Blood Count 4.87 X10*6/uL (4.60-5.80); SCAN SMEAR FLAG 1; White Blood Count 26.3 X10*3/uL (4.8-10.8)
[2025-04-02 07:12] LABS: Anion Gap 11 (12-20); Blood Urea Nitrogen 13 mg/dL (9-16); Calcium 8.4 mg/dL (8.4-10.2); Carbon Dioxide 23 mmol/L (22-29); Chloride 110 mmol/L (96-108); Creatinine Clr Calc Pharmacy 98.3; Estimated Glomerular Filt Rate > 60; Potassium 3.4 mmol/L (3.3-5.1); Sodium 141 mmol/L (135-145)
[2025-04-02 07:24] LABS: Glucose, Whole Blood 212 mg/dL (60-115)
[2025-04-02 07:28] VITALS: BP 120/56; PULSE 77; RESP 16; TEMP 36.4; O2SAT 95
[2025-04-02] MEDS: 0.9 % Sodium Chloride Flush 3 ML SYRINGE IVFLUSH ×2 (07:45→14:56)
[2025-04-02 08:01] LABS: HBS Num1 0.14 mIU/mL (0-7.99); HBc Num1 0.05 S/CO (0.00-0.79); HBsAGNum1 0.54 S/CO (0.00-0.99); Hepatitis B Surface Antigen Negative (Negative); ~Hepatitis B Surface Antibody NONREACTIVE (Nonreactive)
[2025-04-02 11:25] LABS: Glucose, Whole Blood 237 mg/dL (60-115)
--- NOTE | 2025-04-02 11:42 | MHC.CM.PN ---
Pt self-care, lives at home with his and adult son. Pts [id number] will transport him home at discharge. Education provided on HCP, pt needs to discuss it with his first. PCP: Dr. Silver Norman
--- NOTE | 2025-04-02 14:04 | MHC.CM.PN ---
Pt requested to complete a HCP, it is now on file.
[2025-04-02 15:05] LABS: Glucose, Whole Blood 336 mg/dL (60-115)
[2025-04-02 15:26] VITALS: BP 134/65; PULSE 94; RESP 18; TEMP 36.8; O2SAT 95
--- NOTE | 2025-04-02 16:23 | HO.PM.IMPN ---
Subjective Subjective Date of Service: 04/02/25 Interval History: Reports mild interval improvement I did explain to him in detail about following PSA, his chronic medical conditions with his PCP Explained to the patient about his concerns for fever and chills is Crohn's disease flare and not necessarily a sepsis or bacteremia given lab work and hemodynamic status Still awaiting TB spot test after which we will start mesalamine and outpatient he will be initiated on a biologic agent Review of Systems Review of Systems: Yes all other systems are reviewed and are negative Physical Exam Exam: Exam: General: AOx3, no acute distress Resp: CTA bilaterally CVS: S1, S2, RRR GI: +BS, NT, no distention Extremities: No edema Vital Signs: Vital Signs: Last Vital Signs Temp 98.3 F 04/02/25 15:26 Pulse 94 04/02/25 15:26 Resp 18 04/02/25 15:26 BP 134/65 04/02/25 15:26 Pulse Ox 95 04/02/25 15:26 O2 Del Method Room Air 04/02/25 15:26 BMI result Body Mass Index 25.5 Objective Data Active Medications Acetaminophen (Acetaminophen 325 Mg Tablet) 650 mg PO Q6H PRN PRN Reason: Pain, Mild 1-3,fever,headache Last Admin: 04/01/25 15:17 Dose: 650 mg Documented By: RADHA Albuterol/Ipratropium (Albuterol/Iprat 2.5/0.5mg 3 Ml Ampul.Neb) 3 ml INHALE Q4H PRN PRN Reason: Shortness of Breath/Wheezing Calcium Carbonate (Calcium Carbonate 750 Mg Tab.Chew) 750 mg PO Q4H PRN PRN Reason: Heartburn Dextrose (Dextrose 50 % 25 Gm/50 Ml Syringe) 25 gm IVPUSH Q15M PRN; Protocol PRN Reason: per Hypoglycemia Standing Ord. Enoxaparin Sodium (Enoxaparin Sodium 40 Mg/0.4 Ml Syringe) 40 mg SUBCUT Q24H COLT Last Admin: 04/02/25 02:53 Dose: 40 mg Documented By: AJIT Glucose (Glucose Gel 15 Gm Gel..Gram.) 15 gm PO Q15M PRN; Protocol PRN Reason: per Hypoglycemia Standing Ord. Hydrocortisone Sodium Succinate (Hydrocortisone Sod Succ/Pf 100 Mg Vial) 100 mg IVPUSH Q6H COLT Last Admin: 04/02/25 14:55 Dose: 100 mg Documented By: RADHA Sodium Chloride (Ns) 1,000 mls @ 75 mls/hr IVCONT .[id number] [facility] Last Admin: 04/02/25 10:26 Dose: 75 mls/hr Documented By: RADHA Insulin Human Lispro (Insulin Lispro 100 Unit/Ml 3 Ml Vial) 0 unit SUBCUT QIDACHS [facility]; Protocol Last Admin: 04/02/25 15:02 Dose: 8 unit Documented By: RADHA Comments: early dinner/late lunch blood sugar 336 Melatonin (Melatonin 3 Mg Tablet) 6 mg PO BEDTIME PRN PRN Reason: Insomnia Ondansetron HCl (Ondansetron Hcl 4 Mg/2 Ml Vial) 4 mg IVPUSH Q8H PRN PRN Reason: Nausea and Vomiting Sodium Chloride (0.9 % Sodium Chloride Flush 3 Ml Syringe) 3 ml IVFLUSH QSHIFT [facility] Last Admin: 04/02/25 14:56 Dose: 3 ml Documented By: RADHA Labs 04/02/25 06:37 04/02/25 06:37 Labs: Laboratory Results - last 24 hr 04/01/25 04/02/25 04/02/25 20:56 06:37 07:21 MCV 80.1 MCH 27.7 MCHC 34.6 RDW 13.2 Plt Count 365 MPV 8.5 L Immature Gran % (Auto) 2.1 H Neut % (Auto) 93.3 H Lymph % (Auto) 2.8 L [place] % (Auto) 1.5 L Eos % (Auto) 0.0 Baso % (Auto) 0.3 Lymph # (Auto) 0.7 L [place] # (Auto) 0.4 Eos # (Auto) 0.0 Baso # (Auto) 0.1 Abs Immat Gran (auto) 0.56 H Absolute Neuts (auto) 24.5 H Absolute Nucleated RBC 0.000 Nucleated RBC % (auto) 0.0 Smear Tech's Comments VERIFIED Anion Gap 11 L Estim Creat Clear Calc 98.3 Estimated GFR > 60 POC Glucose 177 H 212 H Fasting Glucose 229 H Calcium 8.4 Hep Bs Antigen Negative Hep Bs Antibody NONREACTIVE Hep B Core Total Ab Nonreactive 04/02/25 04/02/25 11:13 14:59 MCV MCH MCHC RDW Plt Count MPV Immature Gran % (Auto) Neut % (Auto) Lymph % (Auto) [place] % (Auto) Eos % (Auto) Baso % (Auto) Lymph # (Auto) [place] # (Auto) Eos # (Auto) Baso # (Auto) Abs Immat Gran (auto) Absolute Neuts (auto) Absolute Nucleated RBC Nucleated RBC % (auto) Smear Tech's Comments Anion Gap Estim Creat Clear Calc Estimated GFR POC Glucose 237 H 336 H Fasting Glucose Calcium Hep Bs Antigen Hep Bs Antibody Hep B Core Total Ab Microbiology Microbiology Results: Microbiology 03/31/25 21:17 Blood Culture - Preliminary Blood - Venous No growth after 24 hours. 03/31/25 21:15 Blood Culture - Preliminary Blood - Venous No growth after 24 hours. Assessment and Plan (1) Crohn disease: Status: Acute Plan 64 yo male with PMH crohn's off tx (imuran) for 5-10 years, hypertension, hyperlipidemia, bilateral rotator cuff tears, osteoarthritis, nephrolithiasis, B inguinal hernia repair, calcifications bilateral lungs, insulin-dependent diabetes type 2, neuropathy BLEs, presents to the ED with 2 days of worsening abdominal pain and fever was noted to have Crohn's flare and is being worked up by GI for re-initiation of biologics. Crohn's flare causing colitis GI and C diff panel was negative hence discontinued broad-spectrum antibiotics Patient encouraged to eat probiotic yogurt Awaiting calprotectin result - if negative can start oral biologics Have started oral mesalamine-hep B negative start with a low dose from tomorrow Type 2 DM Patient hypoglycemic after expanding his diet to diabetic diet, we will slowly uptitrate and resume his home Lantus and lispro if he continues to be hyperglycemic OA Pain control with tylenol, will avoid opioids DVT px with Lovenox 40 sc od Quality Stroke Does the patient have a stroke diagnosis?: No Reason for No Anti-thrombotic by Day Two: N/A - Med Ordered VTE Prior VTE?: No VTE Risk Level:: Medical - moderate - high VTE Device Contraindication: N/A - Device Ordered VTE Drug Contraindication: N/A - Med Ordered
[2025-04-02 16:24] LABS: Glucose, Whole Blood 300 mg/dL (60-115)
[2025-04-02 16:35] LABS: Hemoglobin A1C 148.0823 umol/L; Total Hemoglobin (HGBA1C) 3517.6657 umol/L
[2025-04-02] MEDS: Insulin Glargine,Hum.rec.anlog 100 UNIT/ML 10 ML VIAL SUBCUT ×2 (16:42)
[2025-04-02 19:52] VITALS: BP 116/60; PULSE 93; RESP 17; TEMP 36.6; O2SAT 96
[2025-04-02 20:46] LABS: Glucose, Whole Blood 243 mg/dL (60-115)
--- NOTE | 2025-04-02 22:29 | PM.GIPN ---
Subjective Subjective Date of Service: 04/02/25 Interval History: He reports feeling somewhat better overall with less abdominal pain, less diarrhea, and less fatigue. He started having food for lunch. He has some bloating but no pain. He has been afebrile.There has been no bleeding.His blood sugars have been higher on the steroids. Critical Care Time (minutes): 0 Physical Exam Vital Signs: Vital Signs: Last Vital Signs Temp 97.9 F 04/02/25 19:52 Pulse 93 04/02/25 19:52 Resp 17 04/02/25 19:52 BP 116/60 04/02/25 19:52 Pulse Ox 96 04/02/25 19:52 O2 Del Method Room Air 04/02/25 19:52 BMI result Body Mass Index 25.5 Const: General: cooperative, healthy appearing, comfortable, no acute distress, well developed, alert, awake and Physically active GI: Other: +BS, soft, nondistended, mild diffuse tenderness(much improved), no mass Objective Data Labs 04/02/25 06:37 04/02/25 06:37 Labs: Laboratory Results - last 24 hr 04/02/25 04/02/25 04/02/25 06:37 07:21 11:13 WBC 26.3 H RBC 4.87 Hgb 13.5 L Hct 39.0 L MCV 80.1 MCH 27.7 MCHC 34.6 RDW 13.2 Plt Count 365 MPV 8.5 L Immature Gran % (Auto) 2.1 H Neut % (Auto) 93.3 H Lymph % (Auto) 2.8 L [place] % (Auto) 1.5 L Eos % (Auto) 0.0 Baso % (Auto) 0.3 Lymph # (Auto) 0.7 L [place] # (Auto) 0.4 Eos # (Auto) 0.0 Baso # (Auto) 0.1 Abs Immat Gran (auto) 0.56 H Absolute Neuts (auto) 24.5 H Absolute Nucleated RBC 0.000 Nucleated RBC % (auto) 0.0 Smear Tech's Comments VERIFIED Sodium 141 Potassium 3.4 Chloride 110 H Carbon Dioxide 23 Anion Gap 11 L BUN 13 Creatinine 0.88 Estim Creat Clear Calc 98.3 Estimated GFR > 60 POC Glucose 212 H 237 H Fasting Glucose 229 H Estimat Average Glucose 126 Hemoglobin A1c % 6.0 Calcium 8.4 Hep Bs Antigen Negative Hep Bs Antibody NONREACTIVE Hep B Core Total Ab Nonreactive 04/02/25 04/02/25 04/02/25 14:59 16:12 20:36 WBC RBC Hgb Hct MCV MCH MCHC RDW Plt Count MPV Immature Gran % (Auto) Neut % (Auto) Lymph % (Auto) [place] % (Auto) Eos % (Auto) Baso % (Auto) Lymph # (Auto) [place] # (Auto) Eos # (Auto) Baso # (Auto) Abs Immat Gran (auto) Absolute Neuts (auto) Absolute Nucleated RBC Nucleated RBC % (auto) Smear Tech's Comments Sodium Potassium Chloride Carbon Dioxide Anion Gap BUN Creatinine Estim Creat Clear Calc Estimated GFR POC Glucose 336 H 300 H 243 H Fasting Glucose Estimat Average Glucose Hemoglobin A1c % Calcium Hep Bs Antigen Hep Bs Antibody Hep B Core Total Ab Microbiology Microbiology Results: Microbiology 03/31/25 21:17 Blood - Venous Blood Culture - Preliminary No growth after 24 hours. 03/31/25 21:15 Blood - Venous Blood Culture - Preliminary No growth after 24 hours. Procedures Date of Service Date of Service: 04/02/25 Progress Note: A&P Assessment and plan (1) Crohn disease of colon: Status: Acute Assessment and Plan: Imp: Crohn's is clinically improved on the IV steroids from a symptomatic standpoint and on his abdominal exam. His infectious w/u has been negative and he has been afebrile, although his WBC count remains high. Rec: Continue IV steroids though 04/03 and then start 40mg of prednisone po on 04/04 as long as things are remaining stable. Continue diet as tolerated. F/U labs. We discussed his previous treatments and he advised me that he never tolerated the mesalamines due to a lot of constitutional symptoms. He does not want to try them again. He did tolerate Imuran 200mg daily for years and was doing well on that. He is agreeable to going on a biologic if need be as well. We discussed that the Imuran and the biologics take some time to become effective and therefore a prednisone taper will be important to hopefully maintain things until the other medication kicks in . He is in favor of trying the Imuran again and I think that is reasonable given his favorable history with that medication. I will start him on 100mg daily and then increase that as tolerated as an outpatient. We did review potential risks of Imuran in regard to immunosuppresion, hepatitis, and pancreatitis. Discussed the plan in detail with him and he is comfortable with this plan. Thanks. Time Spent With Patient Time: Total time managing care of this patient today ____ minutes. Quality Stroke Does the patient have a stroke diagnosis?: No Reason for No Anti-thrombotic by Day Two: N/A - Med Ordered VTE Prior VTE?: No VTE Risk Level:: Medical - moderate - high VTE Device Contraindication: N/A - Device Ordered VTE Drug Contraindication: N/A - Med Ordered
[2025-04-03] MEDS: Hydrocortisone Sod Succ/PF 100 MG VIAL IVPUSH ×3 (02:37→20:49)
[2025-04-03 03:24] VITALS: BP 107/59; PULSE 75; RESP 18; TEMP 36.3; O2SAT 95
[2025-04-03 05:46] VITALS: BMI 26.2
[2025-04-03 06:43] LABS: Hematocrit 36.6 % (42.0-52.0); Hemoglobin 12.6 g/dl (14.0-18.0); Imm Gran Abs Auto 0.89 X10*3/uL (0.00-0.03); Imm Gran Pct Auto 2.6 % (0.0-0.4); Lymphocytes Absolute Auto 1.0 X10*3/uL (1.2-4.9); MANUAL DIFF FLAG SCAN; Mean Corpuscular HGB Conc 34.4 g/dl (31.0-36.0); Mean Corpuscular Hemoglobin 27.7 pg (27.0-33.0); Mean Corpuscular Volume 80.4 fL (80.0-98.0); NRBC Abs Auto 0.000 X10*3/uL (0.0-0.012); NRBC Pct Auto 0.0 /100WBC (0.0-0.2); Platelet Count 431 X10*3/uL (160-400); Red Blood Count 4.55 X10*6/uL (4.60-5.80); SCAN SMEAR FLAG 1
[2025-04-03 06:56] LABS: Anion Gap 11 (12-20); Blood Urea Nitrogen 15 mg/dL (9-16); Calcium 8.3 mg/dL (8.4-10.2); Carbon Dioxide 22 mmol/L (22-29); Chloride 111 mmol/L (96-108); Creatinine Clr Calc Pharmacy 109.5; Estimated Glomerular Filt Rate > 60; Potassium 3.7 mmol/L (3.3-5.1); Sodium 140 mmol/L (135-145)
[2025-04-03 07:06] LABS: White Blood Count 33.9 X10*3/uL (4.8-10.8)
[2025-04-03 07:32] LABS: Glucose, Whole Blood 204 mg/dL (60-115)
[2025-04-03 07:33] VITALS: BP 117/59; PULSE 73; RESP 16; TEMP 36.6; O2SAT 91
--- NOTE | 2025-04-03 08:11 | HO.PM.IMPN ---
Subjective Subjective Date of Service: 04/03/25 Interval History: Worsening asymptomatic leukocytosis and thrombocytosis - likely 2/2 steroids [place] being uptitrated slowly to goal Review of Systems Review of Systems: Yes all other systems are reviewed and are negative Physical Exam Exam: Exam: General: AOx3, no acute distress Resp: CTA bilaterally CVS: S1, S2, RRR GI: +BS, NT, no distention Extremities: No edema Vital Signs: Vital Signs: Last Vital Signs Temp 97.8 F 04/03/25 07:33 Pulse 73 04/03/25 07:33 Resp 16 04/03/25 07:33 BP 117/59 L 04/03/25 07:33 Pulse Ox 91 L 04/03/25 07:33 O2 Del Method Room Air 04/03/25 07:33 BMI result Body Mass Index 26.2 Objective Data Active Medications Acetaminophen (Acetaminophen 325 Mg Tablet) 650 mg PO Q6H PRN PRN Reason: Pain, Mild 1-3,fever,headache Last Admin: 04/01/25 15:17 Dose: 650 mg Documented By: RADHA Albuterol/Ipratropium (Albuterol/Iprat 2.5/0.5mg 3 Ml Ampul.Neb) 3 ml INHALE Q4H PRN PRN Reason: Shortness of Breath/Wheezing Azathioprine (Azathioprine 50 Mg Tablet) 100 mg PO DAILY COLT Calcium Carbonate (Calcium Carbonate 750 Mg Tab.Chew) 750 mg PO Q4H PRN PRN Reason: Heartburn Dextrose (Dextrose 50 % 25 Gm/50 Ml Syringe) 25 gm IVPUSH Q15M PRN; Protocol PRN Reason: per Hypoglycemia Standing Ord. Enoxaparin Sodium (Enoxaparin Sodium 40 Mg/0.4 Ml Syringe) 40 mg SUBCUT Q24H [facility] Last Admin: 04/03/25 02:37 Dose: 40 mg Documented By: VENKAT Glucose (Glucose Gel 15 Gm Gel..Gram.) 15 gm PO Q15M PRN; Protocol PRN Reason: per Hypoglycemia Standing Ord. Hydrocortisone Sodium Succinate (Hydrocortisone Sod Succ/Pf 100 Mg Vial) 100 mg IVPUSH Q6H [facility] Last Admin: 04/03/25 07:49 Dose: 100 mg Documented By: KENY Insulin Human Lispro (Insulin Lispro 100 Unit/Ml 3 Ml Vial) 0 unit SUBCUT QIDACHS [facility]; Protocol Last Admin: 04/03/25 07:45 Dose: 4 unit Documented By: KENY Melatonin (Melatonin 3 Mg Tablet) 6 mg PO BEDTIME PRN PRN Reason: Insomnia Mesalamine (Mesalamine 0.375 Gm Cap.Er.24h) 1.5 gm PO DAILY [facility] Last Admin: 04/03/25 07:47 Dose: 1.5 gm Documented By: KENY Ondansetron HCl (Ondansetron Hcl 4 Mg/2 Ml Vial) 4 mg IVPUSH Q8H PRN PRN Reason: Nausea and Vomiting Simethicone (Simethicone 80 Mg Tab.Chew) 80 mg PO QIDWMHS PRN PRN Reason: Gas Sodium Chloride (0.9 % Sodium Chloride Flush 3 Ml Syringe) 3 ml IVFLUSH QSHIFT [facility] Last Admin: 04/03/25 07:05 Dose: Not Given Documented By: KENY Non-Admin Reason: IV Running Labs 04/03/25 06:32 04/03/25 06:32 Labs: Laboratory Results - last 24 hr 04/02/25 04/02/25 04/02/25 06:37 11:13 14:59 MCV MCH MCHC RDW Plt Count MPV Anion Gap Estim Creat Clear Calc Estimated GFR POC Glucose 237 H 336 H Fasting Glucose Estimat Average Glucose 126 Hemoglobin A1c % 6.0 Calcium Hep Bs Antigen Negative Hep Bs Antibody NONREACTIVE Hep B Core Total Ab Nonreactive 04/02/25 04/02/25 04/03/25 16:12 20:36 06:32 MCV 80.4 MCH 27.7 MCHC 34.4 RDW 13.2 Plt Count 431 H MPV 8.6 L Anion Gap 11 L Estim Creat Clear Calc 109.5 Estimated GFR > 60 POC Glucose 300 H 243 H Fasting Glucose 233 H Estimat Average Glucose Hemoglobin A1c % Calcium 8.3 L Hep Bs Antigen Hep Bs Antibody Hep B Core Total Ab 04/03/25 07:25 MCV MCH MCHC RDW Plt Count MPV Anion Gap Estim Creat Clear Calc Estimated GFR POC Glucose 204 H Fasting Glucose Estimat Average Glucose Hemoglobin A1c % Calcium Hep Bs Antigen Hep Bs Antibody Hep B Core Total Ab Microbiology Microbiology Results: Microbiology 03/31/25 21:17 Blood Culture - Preliminary Blood - Venous No growth after 48 hours. 03/31/25 21:15 Blood Culture - Preliminary Blood - Venous No growth after 48 hours. Assessment and Plan (1) Crohn disease: Status: Acute Plan 64 yo male with PMH crohn's off tx (imuran) for 5-10 years, hypertension, hyperlipidemia, bilateral rotator cuff tears, osteoarthritis, nephrolithiasis, B inguinal hernia repair, calcifications bilateral lungs, insulin-dependent diabetes type 2, neuropathy BLEs, presents to the ED with 2 days of worsening abdominal pain and fever was noted to have Crohn's flare and is being worked up by GI for re-initiation of biologics. Crohn's flare causing colitis Mesalamine - allergy - recorded in chart GI and C diff panel was negative hence discontinued broad-spectrum antibiotics Awaiting calprotectin result - if negative can start oral biologics Mesalamine - allergy - recorded in chart Tb spot test still pending - its a send out hence taking time -will consult GI tomorrow to see if he can be started on biologics Worsening asymptomatic Leukocytosis and Thrombocytopenia Likely 2/2 Steroids, will taper IV steroids given good response to rx Also, if his leukocytosis and thrombocytosis worsens, I'd probably think of hematological malignancies - will consult Heme-onc Type 2 DM Patient hyperglycemic after expanding his diet to diabetic diet, we will slowly uptitrate and resume his home Lantus and lispro if he continues to be hyperglycemic OA Pain control with tylenol, will avoid opioids DVT px with Lovenox 40 sc od Quality Stroke Does the patient have a stroke diagnosis?: No Reason for No Anti-thrombotic by Day Two: N/A - Med Ordered VTE Prior VTE?: No VTE Risk Level:: Medical - moderate - high VTE Device Contraindication: N/A - Device Ordered VTE Drug Contraindication: N/A - Med Ordered
[2025-04-03] MEDS: Insulin Glargine,Hum.rec.anlog 100 UNIT/ML 10 ML VIAL 15 UNIT SUBCUT (09:17)
--- NOTE | 2025-04-03 10:59 | MHC.CM.PN ---
Per MD rounds patient not medically cleared for dc. Anticipate home self care when medically cleared. CM will contiue to follow.
[2025-04-03 11:15] LABS: Glucose, Whole Blood 223 mg/dL (60-115)
[2025-04-03 12:00] VITALS: O2SAT 94
[2025-04-03 15:18] VITALS: BP 134/69; PULSE 75; RESP 18; TEMP 36.6; O2SAT 94
--- NOTE | 2025-04-03 15:41 | PC.NURSE ---
Pt ambulatory independently. Denies pain. Tolerating po. States stools are diarrhea but improving.
[2025-04-03 16:26] LABS: Glucose, Whole Blood 221 mg/dL (60-115)
[2025-04-03] MEDS: 0.9 % Sodium Chloride Flush 3 ML SYRINGE IVFLUSH ×2 (17:14→20:52)
[2025-04-03 19:23] VITALS: BP 130/64; PULSE 74; RESP 18; TEMP 37.1; O2SAT 94
--- NOTE | 2025-04-03 19:41 | PM.GIPN ---
Subjective Subjective Date of Service: 04/03/25 Interval History: I saw the patient around 11 AM this morning. He reports that he has been feeling much better with less abdominal pain and having about 1 postprandial loose bowel movement. He reports this is a significant improvement compared to when he first got to the hospital. He denies any bleeding, fevers, or chills. He is eager to hopefully go home by tomorrow. Critical Care Time (minutes): 0 Physical Exam Vital Signs: Vital Signs: Last Vital Signs Temp 98.8 F 04/03/25 19:23 Pulse 74 04/03/25 19:23 Resp 18 04/03/25 19:23 BP 130/64 04/03/25 19:23 Pulse Ox 94 04/03/25 19:23 O2 Del Method Room Air 04/03/25 19:23 BMI result Body Mass Index 26.2 Const: General: cooperative, healthy appearing, comfortable, no acute distress, well developed, alert, awake and Physically active GI: Other: Abd-+BS, soft, minimal tenderness, nondistended Objective Data Labs 04/03/25 06:32 04/03/25 06:32 Labs: Laboratory Results - last 24 hr 04/02/25 04/03/25 04/03/25 20:36 06:32 07:25 WBC 33.9 H* RBC 4.55 L Hgb 12.6 L Hct 36.6 L MCV 80.4 MCH 27.7 MCHC 34.4 RDW 13.2 Plt Count 431 H MPV 8.6 L Immature Gran % (Auto) 2.6 H Neut % (Auto) 91.4 H Lymph % (Auto) 3.0 L [place] % (Auto) 2.7 Eos % (Auto) 0.0 Baso % (Auto) 0.3 Lymph # (Auto) 1.0 L [place] # (Auto) 0.9 Eos # (Auto) 0.0 Baso # (Auto) 0.1 Abs Immat Gran (auto) 0.89 H Absolute Neuts (auto) 31.0 H Absolute Nucleated RBC 0.000 Nucleated RBC % (auto) 0.0 Smear Tech's Comments VERIFIED Sodium 140 Potassium 3.7 Chloride 111 H Carbon Dioxide 22 Anion Gap 11 L BUN 15 Creatinine 0.79 Estim Creat Clear Calc 109.5 Estimated GFR > 60 POC Glucose 243 H 204 H Fasting Glucose 233 H Calcium 8.3 L 04/03/25 04/03/25 11:11 15:56 WBC RBC Hgb Hct MCV MCH MCHC RDW Plt Count MPV Immature Gran % (Auto) Neut % (Auto) Lymph % (Auto) [place] % (Auto) Eos % (Auto) Baso % (Auto) Lymph # (Auto) [place] # (Auto) Eos # (Auto) Baso # (Auto) Abs Immat Gran (auto) Absolute Neuts (auto) Absolute Nucleated RBC Nucleated RBC % (auto) Smear Tech's Comments Sodium Potassium Chloride Carbon Dioxide Anion Gap BUN Creatinine Estim Creat Clear Calc Estimated GFR POC Glucose 223 H 221 H Fasting Glucose Calcium Microbiology Microbiology Results: Microbiology 03/31/25 21:17 Blood - Venous Blood Culture - Preliminary No growth after 48 hours. 03/31/25 21:15 Blood - Venous Blood Culture - Preliminary No growth after 48 hours. Procedures Date of Service Date of Service: 04/03/25 Progress Note: A&P Assessment and plan (1) Crohn disease of colon: Status: Acute Assessment and Plan: Imp: His Crohn's colitis flare has significantly improved since admission. While the WBC count is quite high, he does not have any signs or sx of an infectious process. However, we did review potential sx of an infectious process to be on the alert for. He received his first dose of Imuran this morning. Rec: Continue plan as outlined in yesterday's note with changing him to po prednisone 40mg tomorrow and then discharging him later in the day if stable. I will send Rx's for the prednisone taper, Imuran, and Hyoscyamine SL to the [facility] pharmacy for him. I will arrange for outpatient labs for his Imuran and a F/U OV as well. Reviewed with patient in detail and he is comfortable with this plan. Thanks Time Spent With Patient Time: Total time managing care of this patient today ____ minutes. Quality Stroke Does the patient have a stroke diagnosis?: No Reason for No Anti-thrombotic by Day Two: N/A - Med Ordered VTE Prior VTE?: No VTE Risk Level:: Medical - moderate - high VTE Device Contraindication: N/A - Device Ordered VTE Drug Contraindication: N/A - Med Ordered
[2025-04-03 20:40] LABS: Glucose, Whole Blood 210 mg/dL (60-115)
[2025-04-04 03:47] VITALS: BP 121/62; PULSE 70; RESP 18; TEMP 36.7; O2SAT 94
[2025-04-04 05:48] LABS: MANUAL DIFF FLAG NO
[2025-04-04 05:54] LABS: Hematocrit 36.1 % (42.0-52.0); Hemoglobin 12.5 g/dl (14.0-18.0); Imm Gran Abs Auto 0.90 X10*3/uL (0.00-0.03); Imm Gran Pct Auto 4.0 % (0.0-0.4); Lymphocytes Absolute Auto 1.4 X10*3/uL (1.2-4.9); Mean Corpuscular HGB Conc 34.6 g/dl (31.0-36.0); Mean Corpuscular Hemoglobin 27.8 pg (27.0-33.0); Mean Corpuscular Volume 80.4 fL (80.0-98.0); NRBC Abs Auto 0.000 X10*3/uL (0.0-0.012); NRBC Pct Auto 0.0 /100WBC (0.0-0.2); Platelet Count 440 X10*3/uL (160-400); Red Blood Count 4.49 X10*6/uL (4.60-5.80); White Blood Count 22.6 X10*3/uL (4.8-10.8)
[2025-04-04 06:00] VITALS: BMI 26.9
[2025-04-04 07:32] LABS: Glucose, Whole Blood 186 mg/dL (60-115)
--- NOTE | 2025-04-04 07:38 | PC.NURSE ---
Patient refusing yellow fall risk band, safety alarms, and yellow fall risk socks. Patient agreeable to wear [place] non-skid socks. Patient given [place] non-skid socks.
[2025-04-04 07:42] VITALS: BP 133/74; PULSE 83; RESP 16; TEMP 36.8; O2SAT 93
[2025-04-04] MEDS: 0.9 % Sodium Chloride Flush 3 ML SYRINGE IVFLUSH (07:48)
[2025-04-04] MEDS: Insulin Glargine,Hum.rec.anlog 100 UNIT/ML 10 ML VIAL 15 UNIT SUBCUT (08:38)
--- NOTE | 2025-04-04 08:50 | P.DS_ITS ---
DS: Providers Provider Date of Service: 04/04/25 Date of admission: 04/01/25 01:03 Date of discharge: 04/04/25 Primary care physician: Silver Norman MD Consults: 04/01/25 01:11 Consult to Gastroenterology Routine Consulting Provider: Fady Fernandez Reason for consultation: colitis, acute hx of Crohns DS: Diagnosis Discharge Diagnosis (1) Crohn disease: Status: Acute DS: Summary Hospital Course Hospital Course: Crohn's flare causing colitis Mesalamine - allergy - recorded in chart 64 yo male with PMH crohn's off tx (imuran) for 5-10 years, hypertension, hyperlipidemia, bilateral rotator cuff tears, osteoarthritis, nephrolithiasis, B inguinal hernia repair, calcifications bilateral lungs, insulin-dependent diabetes type 2, neuropathy BLEs, presents to the ED with 2 days of worsening abdominal pain and fever was noted to have Crohn's flare and is being worked up by GI for re-initiation of biologics. Workup thus far for C diff and GI panel was negative. Awaiting calprotectin and TB spot which are currently pending at the time of this discharge. Patient has severe allergy to mesalamine-reports severe lethargy to the point of weakness, unable to ambulate and hence this has been added to the allergy list. Patient has been initiated on Imuran (azathioprine). Patient is being discharged on a steroid taper and azathioprine, which has been ordered by GI physician Dr. Fernandez (much appreciated), and we will be followed by outpatient by his primary GI physician. Worsening asymptomatic Leukocytosis and Thrombocytopenia Likely 2/2 Steroids, he was on IV steroids for nearly 5 days. Downtrending without overt signs of sepsis. Patient also educated about signs of sepsis and what to watch out for in case he has any symptoms at home. 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 Type 2 DM No changes to his home med except adding insulin sliding scale per patient's preference. He will be resuming his home insulin and GLP 1 and we expect him to monitor his blood sugars with a CGM. OA Pain control with tylenol, will avoid opioids DVT px with Lovenox 40 sc od This note is constructed using voice recognition software. 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 Status at Discharge Functional status at discharge: independent ambulation Overall status at discharge: patient is back to baseline Time Attestation Discharge Coordination Time (in mins): 35 Quality: Safe Use of Opioids Does Pt have an Active Cancer Diagnosis on the Problem List?: No Quality: Stroke Does the patient have a stroke diagnosis?: No Physical Exam Exam: Exam: General: AOx3, no acute distress Resp: CTA bilaterally CVS: S1, S2, RRR GI: +BS, NT, no distention Extremities: No edema Vital Signs: Vital Signs: Last Vital Signs Temp 98.2 F 04/04/25 07:42 Pulse 83 04/04/25 07:42 Resp 16 04/04/25 07:42 BP 133/74 04/04/25 07:42 Pulse Ox 93 04/04/25 07:42 O2 Del Method Room Air 04/04/25 07:42 BMI result Body Mass Index 26.9 DS: Data Data Completed and Pending Labs on day of discharge: Laboratory Results - last 24 hr 04/03/25 04/03/25 04/03/25 11:11 15:56 20:36 WBC RBC Hgb Hct MCV MCH MCHC RDW Plt Count MPV Immature Gran % (Auto) Neut % (Auto) Lymph % (Auto) Emanuel % (Auto) Eos % (Auto) Baso % (Auto) Lymph # (Auto) Emanuel # (Auto) Eos # (Auto) Baso # (Auto) Abs Immat Gran (auto) Absolute Neuts (auto) Absolute Nucleated RBC Nucleated RBC % (auto) POC Glucose 223 H 221 H 210 H C-Reactive Protein 04/04/25 04/04/25 05:42 07:26 WBC 22.6 H RBC 4.49 L Hgb 12.5 L Hct 36.1 L MCV 80.4 MCH 27.8 MCHC 34.6 RDW 13.4 Plt Count 440 H MPV 8.6 L Immature Gran % (Auto) 4.0 H Neut % (Auto) 85.6 H Lymph % (Auto) 6.0 L Emanuel % (Auto) 4.0 Eos % (Auto) 0.0 Baso % (Auto) 0.4 Lymph # (Auto) 1.4 Emanuel # (Auto) 0.9 Eos # (Auto) 0.0 Baso # (Auto) 0.1 Abs Immat Gran (auto) 0.90 H Absolute Neuts (auto) 19.4 H Absolute Nucleated RBC 0.000 Nucleated RBC % (auto) 0.0 POC Glucose 186 H C-Reactive Protein 1.92 H Preliminary micro results at discharge 03/31/25 21:17 Blood Culture - Preliminary Blood - Venous No growth after 48 hours. 03/31/25 21:15 Blood Culture - Preliminary Blood - Venous No growth after 48 hours. Discharge Plan Discharge Anticipated Discharge Date/Time: 04/04/25 13:07 Patient Disposition: Home, Self-Care Discharge Diagnosis: Crohn's flare Referrals: Silver Norman MD [Primary Care Provider, Internal Medicine] - 1 Week Discharge Medications: New prednisone 20 mg Tablet See Taper PO DAILY Qty: 20 0RF Taper: Prednisone 40 mg daily for 3 Days and 0 Hour 30 mg daily for 3 Days and 0 Hour 20 mg daily for 3 Days and 0 Hour 10 mg daily for 3 Days and 0 Hour azathioprine 50 mg Tablet 100 mg PO DAILY 30 Days Qty: 60 0RF insulin lispro [Humalog KwikPen Insulin] 100 unit/mL insulin pen See Protocol subcut USEASDIRECTD Qty: 15 3RF Protocol: Insulin Correction Scale Less than or equal to 110 ---- Give (units): 0 111 to 150 Give (units): 0 151 to 200 Give (units): 2 201 to 250 Give (units): 4 251 to 300 Give (units): 6 301 to 350 Give (units): 8 Greater than 350 Give (units): 10 Call if Blood Glucose > : 350 Continued atorvastatin 20 mg tablet 20 mg PO DAILY insulin glargine [Lantus Solostar U-100 Insulin] 100 unit/mL (3 mL) insulin pen 34 unit subcut DAILY Ozempic 0.25 mg or 0.5 mg (2 mg/3 mL) pen injector 0.5 mg SUBCUT BEARD Discharge Orders: Discharge Order (Routine); Ordered 04/04/25 Ordered By: Adela Rich Diet: Diabetic diet Activity on Discharge: As tolerated Stand Alone Forms: Patient Portal Discharge page Print Language: Uzbek Care Plan Goals: Resolution of Crohn's flare Blood sugar control GI follow-up Health Concerns: See above Plan of Treatment: See above Assessment: See above
[2025-04-04 11:20] LABS: Glucose, Whole Blood 201 mg/dL (60-115)
--- NOTE | 2025-04-04 13:32 | MHC.CM.PN ---
Patient medically cleared for dc home self care via private transport
[2025-04-04 15:55] VITALS: BP 150/71; PULSE 67; RESP 18; TEMP 36.7; O2SAT 95
[2025-04-05 10:09] LABS: TSpotTB Invalid (Negative)
[2025-04-06 19:33] LABS: Calprotectin, Fecal 2490 mcg/g
--- NOTE | 2025-05-13 20:00 | P.CDIM_ITS ---
PROVIDER RESPONSE TEXT: To clarify, the appropriate diagnosis supported by the clinical indicators: Sepsis is/was present: based on above sepsis likely +, cannot be r/o QUERY TEXT: PHYSICIAN'S DOCUMENTATION REQUEST Date of Query: 04/04/2025 07:50 AM EDT Patient Name: Jovanny Saavedra Admit Date: 04/01/2025 Dear Adela Rich MD, A review of the medical record indicates additional documentation may be needed. Please review below and update the documentation accordingly. Clinical indicators: H&P dated 04/01/25 - Sepsis/leukocytosis with left shift Patient now ordered to have Cefepime and Flagyl IV Hydration continues. WBC 24.0 LA wnl RR 18 HR 109 Temp 100.5 Sepsis Systemic manifestations of infection, with 2 or more SIRS criteria which include: Fever > 100.4?F or hypothermia < 96.8?F Leukocytosis - WBC > 12,000 or leukopenia, WBC < 4,000, or > 10% bands Tachycardia- > 90 beats/minute Tachypnea- RR > 20 breaths per min Based on the above information and the recognized standard for sepsis, could you please clarify if this diagnoses is still accurate and reflective of the patient's condition to ensure quality of the medical record. Sepsis is/was present possible, probable, suspected, cannot rule out etc. After study Sepsis has been ruled out Other (explain) Clinically unable to determine (explain) Thank you, Betty Hernández, CCS, CDIS Use of terms such as suspected, likely, concern for, or probable (associated with a specific diagnosis that is being evaluated, monitored, or treated as if it exists) are acceptable and can be coded in the inpatient setting, when documented at the time of discharge. Please use your independent medical judgment in providing your response. THIS QUERY IS PART OF THE PERMANENT MEDICAL RECORD
== END 2025-04-04 15:57 | disposition home or self-care (01) | DRG 720 ==
LOC: HO.ED 04-01 01:01 → HO.EDOVER 04-01 01:18 → HO.S3 04-01 03:23
PROVIDERS: Internal Medicine; Physician Assistant Medical; Admitting Provider Nurse Practitioner Family; Emergency Provider Emergency Medicine; PCP Internal Medicine; Visit Provider Student in an Organized Health Care Education/Training Program
DX: A41.9 Sepsis, unspecified organism (principal); K50.10 Crohn's disease of large intestine without complications; D69.59 Other secondary thrombocytopenia; E78.5 Hyperlipidemia, unspecified; T38.0X5A Adverse effect of glucocorticoids and synthetic analogues, initial encounter; I10 Essential (primary) hypertension; M19.012 Primary osteoarthritis, left shoulder; M19.011 Primary osteoarthritis, right shoulder; Z79.4 Long term (current) use of insulin; Z79.899 Other long term (current) drug therapy
CPT/HCPCS: 36415; 74177; 80048; 80053; 80061; 81001; 82272; 82947; 83036; 83605; 83690; 83735; 83993; 84484; 85025; 85652; 86140; 86481; 86704; 86706; 87040; 87340; 87493; 87507; 93005; 99285; J0131; J0692; J0696; J1650; J1720; J1836; J2270; Q9967

== ENCOUNTER → 2025-03-31 21:04 | Outpatient (BNV) | payer OTHER, SELFPAY | PROVIDERS: Emergency Provider Emergency Medicine; PCP Internal Medicine; Visit Provider Radiology Diagnostic Radiology | DX: K52.9 Noninfective gastroenteritis and colitis, unspecified (principal) | CPT/HCPCS: 74177 ==

== ENCOUNTER 2025-04-01 01:03 | Outpatient (BNV) | payer OTHER, SELFPAY | END 2025-04-01 03:33 | PROVIDERS: Admitting Provider Nurse Practitioner Family; Emergency Provider Emergency Medicine; PCP Internal Medicine; Visit Provider Internal Medicine Cardiovascular Disease | DX: I45.10 Unspecified right bundle-branch block (principal) | CPT/HCPCS: 93010 ==

== ENCOUNTER → 2025-04-01 01:03 | Outpatient (BNV) | payer OTHER, SELFPAY | PROVIDERS: Admitting Provider Nurse Practitioner Family; Emergency Provider Emergency Medicine; PCP Internal Medicine; Visit Provider Nurse Practitioner Family | DX: K52.9 Noninfective gastroenteritis and colitis, unspecified (principal); A41.9 Sepsis, unspecified organism; K50.918 Crohn's disease, unspecified, with other complication | CPT/HCPCS: 99223; 99499 ==

== ENCOUNTER 2025-06-17 16:05 | Outpatient (REF) | payer OTHER, SELFPAY ==
[2025-06-17 16:39] LABS: MANUAL DIFF FLAG NO
[2025-06-17 17:11] LABS: Hematocrit 45.5 % (42.0-52.0); Hemoglobin 15.0 g/dl (14.0-18.0); Imm Gran Abs Auto 0.07 X10*3/uL (0.00-0.03); Imm Gran Pct Auto 0.6 % (0.0-0.4); Lymphocytes Absolute Auto 1.5 X10*3/uL (1.2-4.9); Mean Corpuscular HGB Conc 33.0 g/dl (31.0-36.0); Mean Corpuscular Hemoglobin 27.8 pg (27.0-33.0); Mean Corpuscular Volume 84.3 fL (80.0-98.0); NRBC Abs Auto 0.000 X10*3/uL (0.0-0.012); NRBC Pct Auto 0.0 /100WBC (0.0-0.2); Platelet Count 431 X10*3/uL (160-400); Red Blood Count 5.40 X10*6/uL (4.60-5.80); White Blood Count 12.2 X10*3/uL (4.8-10.8)
[2025-06-17 17:40] LABS: Alanine Aminotransferase 21 U/L (0-40); Albumin Level 4.7 g/dL (3.5-5.0); Alkaline Phosphatase 83 U/L (39-117); Aspartate Amino Transferase 23 U/L (5-37); Total Protein 7.3 g/dL (6.5-8.0)
[2025-06-20 00:54] LABS: TS Negative Control Passed; TS Panel A 0; TS Panel B 0; TS Positive Control Passed; TSpotTB Negative (Negative)
== END 2025-06-17 16:06 | disposition home or self-care (01) ==
LOC: HO.LAB 16:05
PROVIDERS: PCP Internal Medicine; Visit Provider Internal Medicine
DX: K50.10 Crohn's disease of large intestine without complications (principal)
CPT/HCPCS: 36415; 80076; 85025; 86481